=== PATIENT | male | born 1990 | race Caucasian/White ===

== ENCOUNTER 2018-08-15 14:21 | Emergency (ER) | payer MEDICAID, OTHER ==
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
[2018-08-15 14:58] VITALS: BP 127/81
[2018-08-15] MEDS: IBUPROFEN 600 MG TABLET PO STA (15:15)
[2018-08-15] MEDS: METHOCARBAMOL 500 MG TABLET PO STA (15:15)
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
== END 2018-08-15 16:36 | disposition home or self-care (01) ==
LOC: ED 14:21
DX: S39.012A Strain of muscle, fascia and tendon of lower back, initial encounter (principal); V43.52XA Car driver injured in collision with other type car in traffic accident, initial encounter; F17.200 Nicotine dependence, unspecified, uncomplicated
CPT/HCPCS: 72100; 99283; A9270